=== PATIENT | male | born 1985 | race Two or more races ===

== ENCOUNTER 2017-02-18 16:32 | Emergency (ER) ==
[2017-02-18 16:36] VITALS: BP 153/91; TEMP 98.8; BMI 34.2
--- NOTE | 2017-02-18 16:44 | ED.PDOC ---
General ED Provider: Dr. WILEY MCCOLLUM Chief Complaint: Wound Check Stated Complaint: Received small cut on left posterior elbow 2 days ago. Area has become eryth, swollen and tender. PMH of cellulitis of same posterior elbow requiring IV antibiotics. Time Seen by Physician: 16:40 Mode of Arrival: Walk-In Information Source: Patient Exam Limitations: No limitations Primary Care Provider: JUDY REYNOLDS Nursing and Triage Documentation Reviewed and Agree: Yes Skin Complaint Exam - Skin/Soft Tissue Complaint/Exam Onset/Duration: 2 days Symptoms Are: Still present Timing: Constant Initial Severity: Mild Current Severity: Moderate Location: posterior left elbow Character: Reports: Redness, Swelling, Painful Aggravating: Reports: Touch Alleviating: Reports: None Associated Signs and Symptoms: Reports: Tenderness Related History: Reports: Similar episode (cellulitis of same area requiring IV antibiotics) Related Surgical History: Reports: None Recent Exposure to Others w/Similar Symptoms: No Skin Findings: Present: Erythema Joint Tenderness Present: No Differential Diagnoses: Cellulitis Review of Systems - Review Of Systems Constitutional: Reports: No symptoms Respiratory: Reports: No symptoms Cardiac: Reports: No symptoms Musculoskeletal: Reports: No symptoms Skin: Reports: Change in color, Other (erythema and tenderness of posterior left elbow) Neurological: Reports: No symptoms All Other Systems: Reviewed and Negative Past Medical History - Past Medical History Previously Healthy: Yes Endocrine: Reports: None Cardiovascular: Reports: None Respiratory: Reports: None Hematological: Reports: None Gastrointestinal: Reports: None Genitourinary: Reports: None Neuro/Psych: Reports: None Musculoskeletal: Reports: None Cancer: Reports: None Other Pertinent Past Medical History: MRSA x 2 - Surgical History General Surgical History: Reports: Back Surgery - Family History Family History: Reports: None - Social History Smoking Status: Current every day smoker, Heavy tobacco smoker Hx Substance Use: Yes Alcohol Screening: None Lives: With family - Immunizations Tetanus Shot up to Date: No Influenza Vaccine within 12 Months: No Pneumococcal Vaccine up to Date: No Physical Exam - Physical Exam Appearance: Well-appearing, No pain distress, Well-nourished Ill-appearing: None Pain Distress: None Respiratory: Airway patent, Breath sounds clear, Breath sounds equal, Respirations nonlabored Cardiovascular: RRR, Pulses normal, No rub, No murmur Musculoskeletal: Normal strength, ROM intact (Local soreness but no elbow joint pain with ROM of left elbow.), No edema, No calf tenderness Skin: Warm (erythema and marked tenderness of posterior left elbow. ) Neurological: Sensation intact, Motor intact, Reflexes intact, Cranial nerves intact, Alert, Oriented Psychiatric: Affect appropriate, Mood appropriate Critical Care Note - Critical Care Note Total Time (mins): 0 Course - Course Vital Signs: Temp Pulse Resp BP Pulse Ox 02/18/17 16:33 98.8 F 96 H 16 153/91 H 97 Departure - Departure Time of Disposition: 16:53 Disposition: HOME SELF-CARE Discharge Problem: Cellulitis of left elbow Instructions: Cellulitis (ED) Condition: Good Pt referred to PMD for follow-up: Yes (see PCP in 3 days for recheck) Allergies/Adverse Reactions: Allergies No Known Allergies Allergy (Verified 02/18/17 16:38) Home Medications: Ambulatory Orders 1 [No Reported Medications] 07/28/15
== END 2017-02-18 17:05 | disposition home or self-care (01) ==
LOC: ED 16:32
DX: L03.114 Cellulitis of left upper limb (principal); F17.210 Nicotine dependence, cigarettes, uncomplicated
CPT/HCPCS: 99282

== ENCOUNTER 2017-02-20 19:48 | Emergency (ER) ==
[2017-02-20] MEDS ORDERED: CLEOCIN 600 MG in SODIUM CHLORIDE 100 ML IV STA (19:49)
[2017-02-20] MEDS ORDERED: SODIUM CHLORIDE 1,000 ML IV STA (19:49)
[2017-02-20] MEDS ORDERED: VANCOMYCIN 1 GM in SODIUM CHLORIDE 250 ML IV STA (19:50)
[2017-02-20] MEDS ORDERED: TORADOL IVP STA (19:50)
[2017-02-20 19:55] VITALS: BP 153/80; TEMP 98.1; BMI 34.1
[2017-02-20] MEDS ORDERED: CLEOCIN ONE (20:02)
[2017-02-20] MEDS ORDERED: ZOFRAN 4 MG/2 ML IVP STA (20:24)
[2017-02-20] MEDS ORDERED: MORPHINE 4 MG/ML VIAL IVP STA (20:24)
--- NOTE | 2017-02-20 20:30 | ED.PDOC ---
General ED Provider: Dr. BLANCA ROSALES-ER Chief Complaint: Cellulitis Stated Complaint: i have swelling and redness around my elbow--the antbx arent helping Time Seen by Physician: 19:50 Mode of Arrival: Walk-In Information Source: Patient Exam Limitations: No limitations Nursing and Triage Documentation Reviewed and Agree: Yes Skin Complaint Exam - Skin/Soft Tissue Complaint/Exam Onset/Duration: several days Symptoms Are: Still present Timing: Constant Initial Severity: Mild Current Severity: Mild Location: left elbow Character: Reports: Redness, Swelling, Raised Aggravating: Reports: Heat, Touch Alleviating: Reports: None Associated Signs and Symptoms: Reports: Tenderness, Red streaks, Joint swelling. 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 Denies: Foreign body, Insect bite/sting, Recent inpatient, Recent travel, Immunocompromised Related Surgical History: Reports: None Recent Exposure to Others w/Similar Symptoms: No Skin Findings: Present: Erythema Joint Tenderness Present: No Differential Diagnoses: Cellulitis, Infection, Other Review of Systems - Review Of Systems Constitutional: Reports: No symptoms Eyes: Reports: No symptoms Ears, Nose, Mouth, Throat: Reports: No symptoms Respiratory: Reports: No symptoms Cardiac: Reports: No symptoms GI: Reports: No symptoms : Reports: No symptoms Musculoskeletal: Reports: Joint swelling, Muscle pain Skin: Reports: Rash Neurological: Reports: No symptoms Endocrine: Reports: No symptoms Hematologic/Lymphatic: Reports: No symptoms All Other Systems: Reviewed and Negative Past Medical History - Past Medical History Previously Healthy: Yes Endocrine: Reports: None Cardiovascular: Reports: None Respiratory: Reports: None Hematological: Reports: None Gastrointestinal: Reports: None Genitourinary: Reports: None Neuro/Psych: Reports: None Musculoskeletal: Reports: None Cancer: Reports: None Other Pertinent Past Medical History: MRSA x 2 - Surgical History General Surgical History: Reports: Back Surgery - Family History Family History: Reports: None - Social History Smoking Status: Current every day smoker, Heavy tobacco smoker Hx Substance Use: Yes Alcohol Screening: None Lives: With family - Immunizations Tetanus Shot up to Date: Yes Influenza Vaccine within 12 Months: No Pneumococcal Vaccine up to Date: No Physical Exam - Physical Exam Appearance: Well-appearing, No pain distress, Well-nourished Pain Distress: Moderate Eyes: KENDRICK, EOMI, Conjunctiva clear ENT: Ears normal, Nose normal, Oropharynx normal Neck: Supple Respiratory: Airway patent Cardiovascular: RRR, Pulses normal, No rub, No murmur GI/: Soft, Nontender, No masses, Bowel sounds normal, No Organomegaly Musculoskeletal: Normal strength, ROM intact Skin: Warm, Dry (noted surrounding warm erythema left elbow--good rom) Neurological: Sensation intact, Motor intact, Reflexes intact, Cranial nerves intact, Alert, Oriented Psychiatric: Affect appropriate, Mood appropriate Interpretation - Radiology Interpretation Radiology Interpretation By: ED Physician Radiology Results: Negative Critical Care Note - Critical Care Note Total Time (mins): 0 Course - Course Orders, Labs, Meds: Orders Category Date Time Status ED IV/MEDIPORT/POWERPORT .ONCE EMERGENCY 02/20/17 19:49 Active 0.9 % Sodium Chloride [Saline Flush] MEDS 02/20/17 19:49 Ordered 1 syr IVF PRN PRN Clindamycin Phosphate Inj [Cleocin] MEDS 02/20/17 20:02 Discontinued 300 mg .ROUTE .STK-MED ONE Clindamycin Phosphate Inj [Cleocin] 600 mg MEDS 02/20/17 19:49 Active 0.9 % Sodium Chloride [Sodium Chloride] 100 ml IV NOW Ketorolac Tromethamine [Toradol] MEDS 02/20/17 19:50 Discontinued 30 mg IVP ONCE STA Morphine Sulfate [Morphine 4 mg/ml Vial] MEDS 02/20/17 20:24 Discontinued 4 mg IVP ONCE STA Ondansetron HCl/Pf [Zofran 4 mg/2 ml] MEDS 02/20/17 20:24 Discontinued 4 mg IVP ONCE STA Sodium Chloride 0.9% [Sodium Chloride] 1,000 ml MEDS 02/20/17 19:49 Active IV 30 mls/hr ELBOW, LEFT MIN 3 VIEWS Stat RADS 02/20/17 19:50 Taken Medications Generic Name Dose Route Start Last Admin Trade Name Freq PRN Reason Stop Dose Admin Clindamycin Phosphate 600 mg/ 104 mls @ 100 mls/hr 02/20/17 19:49 02/20/17 20 :15 Sodium Chloride IV 02/20/17 20:51 100 mls/hr NOW STA Administration Sodium Chloride 1,000 mls @ 30 mls/hr 02/20/17 19:49 02/20/17 20:09 Sodium Chloride IV 02/22/17 05:08 30 mls/hr .[id number] STA Administration Sodium Chloride 1 syr 02/20/17 19:49 02/20/17 20:14 Saline Flush IVF 1 syr PRN PRN Administration To flush IV Discontinued Medications Generic Name Dose Route Start Last Admin Trade Name Freq PRN Reason Stop Dose Admin Ketorolac Tromethamine 30 mg 02/20/17 19:50 02/20/17 20:12 Toradol IVP 02/20/17 19:51 30 mg ONCE STA Administration Morphine Sulfate 4 mg 02/20/17 20:24 Morphine 4 Mg/Ml Vial IVP 02/20/17 20:25 ONCE STA Ondansetron HCl 4 mg 02/20/17 20:24 Zofran 4 Mg/2 Ml IVP 02/20/17 20:25 ONCE STA he has excellent rom and is afebrile--i dont feel this represents a septic joint but a bursitis with cellulitis Vital Signs: Temp Pulse Resp BP Pulse Ox 02/20/17 19:49 98.1 F 89 18 153/80 H 97 Departure - Departure Time of Disposition: 20:31 Disposition: HOME SELF-CARE Discharge Problem: Olecranon bursitis of left elbow, Cellulitis of left elbow Instructions: Elbow Bursitis (ED) Condition: Good Pt referred to PMD for follow-up: Yes Additional Instructions: stop bactrim---clindamycin 150mg tid x 7days---toradol 10mg qid prn pain #16--f/ u wth pcp in 1-2 days for recheck Allergies/Adverse Reactions: Allergies No Known Allergies Allergy (Verified 02/20/17 19:55) Home Medications: Ambulatory Orders 1 [No Reported Medications] 02/20/17 Disposition Discussed With: Patient, Family
--- NOTE | 2017-02-21 09:18 | DI ---
EXAM: LEFT ELBOW HISTORY: Bursitis FINDINGS / IMPRESSION: Left elbow three views. No comparison. Bone and joint structures appear normal. No fracture or arthropathy. No joint effusion. Soft tissue fullness especially of the posterior elbow which could be related to olecranon bursitis o r cellulitis.
== END 2017-02-20 21:53 | disposition home or self-care (01) ==
LOC: ED 19:48
DX: M70.22 Olecranon bursitis, left elbow (principal); L03.114 Cellulitis of left upper limb; F17.210 Nicotine dependence, cigarettes, uncomplicated
CPT/HCPCS: 96365; 96367; 96375; 96376; 99283

== ENCOUNTER 2017-02-28 12:11 | Emergency (ER) ==
[2017-02-28 12:11] VITALS: BMI 34.1
[2017-02-28 12:18] VITALS: BP 144/87; TEMP 98.4
--- NOTE | 2017-02-28 13:06 | ED.PDOC ---
General ED Provider: Dr. WILEY MCCOLLUM Chief Complaint: Wound Check Stated Complaint: Seen last week for cellulitis and abcess of posterior left elbow. Tx'd first with Bactrim whihc had no effect, then switched to clindamycin and has steadily improved. Currently only local tenderness at tip of elbow and still hurts with ROM though tolerable. Time Seen by Physician: 13:04 Mode of Arrival: Walk-In Information Source: Patient Nursing and Triage Documentation Reviewed and Agree: Yes Skin Complaint Exam - Skin/Soft Tissue Complaint/Exam Onset/Duration: 1 week Symptoms Are: Still present (but much improved) Timing: Constant Initial Severity: Severe Current Severity: Mild Location: right posterior elbow Character: Reports: Redness, Swelling, Painful Aggravating: Reports: Touch (ROM) Alleviating: Reports: None Associated Signs and Symptoms: Reports: Itching, Tenderness Related Surgical History: Reports: None Recent Exposure to Others w/Similar Symptoms: No Skin Findings: Present: Other (erythema and tenderness of left posterior elbow) Joint Tenderness Present: No Differential Diagnoses: Cellulitis Review of Systems - Review Of Systems Constitutional: Reports: No symptoms Musculoskeletal: Reports: No symptoms, Joint pain (mild pain with ROM of right elbow, active or passive) Skin: Reports: Other (erythema and tenderness of posterior left elbow, approx 1 cm diam) Neurological: Reports: No symptoms All Other Systems: Reviewed and Negative Past Medical History - Past Medical History Previously Healthy: Yes Endocrine: Reports: None Cardiovascular: Reports: None Respiratory: Reports: None Hematological: Reports: None Gastrointestinal: Reports: None Genitourinary: Reports: None Neuro/Psych: Reports: None Musculoskeletal: Reports: None Cancer: Reports: None Other Pertinent Past Medical History: MRSA x 2 - Surgical History General Surgical History: Reports: Back Surgery - Family History Family History: Reports: None - Social History Smoking Status: Current every day smoker, Heavy tobacco smoker Hx Substance Use: Yes Alcohol Screening: None Lives: Alone - Immunizations Tetanus Shot up to Date: No (unknown) Influenza Vaccine within 12 Months: No Pneumococcal Vaccine up to Date: No Physical Exam - Physical Exam Appearance: Well-appearing, No pain distress, Well-nourished Musculoskeletal: Normal strength, ROM intact (reports mild pain with ROM of left elbow, active or passive), No edema, No calf tenderness Skin: Warm (1 cm diam local erythema and mild tenderness of left posterior elbow ), Dry Neurological: Sensation intact, Motor intact, Reflexes intact, Cranial nerves intact, Alert, Oriented Psychiatric: Affect appropriate, Mood appropriate Critical Care Note - Critical Care Note Total Time (mins): 0 Course - Course Vital Signs: Temp Pulse Resp BP Pulse Ox 02/28/17 12:12 98.4 F 96 H 20 144/87 H 98 Departure - Departure Time of Disposition: 13:12 Disposition: HOME SELF-CARE Discharge Problem: Cellulitis of left elbow Instructions: Cellulitis (ED) Condition: Good Pt referred to PMD for follow-up: No (Return to ED for recheck in one week if still having pain) Allergies/Adverse Reactions: Allergies No Known Allergies Allergy (Verified 02/28/17 12:17) Home Medications: Ambulatory Orders Clindamycin HCl 150 mg PO TID 02/28/17 Clindamycin HCl 150 mg PO TID #21 capsule 02/28/17 Disposition Discussed With: Patient, Family
== END 2017-02-28 13:20 | disposition home or self-care (01) ==
LOC: ED 12:11
DX: L03.114 Cellulitis of left upper limb (principal); F17.210 Nicotine dependence, cigarettes, uncomplicated
CPT/HCPCS: 99282